=== PATIENT | female | born 1990 | race Caucasian/White ===

== ENCOUNTER 2022-10-02 13:02 | Emergency (ER) | payer BC, SELFPAY ==
[2022-10-02 14:12] VITALS: BP 118/71; PULSE 76; RESP 16; TEMP 36.3; O2SAT 99
--- NOTE | 2022-10-02 14:58 | ED.URI ---
HPI - URI/Sore Throat General Chief Complaint: Upper Respiratory Infection Stated Complaint: Flu sx Time Seen by Provider: 10/02/22 14:58 History of Present Illness HPI Narrative: 31-year-old female presented for complaint of sore throat, body aches, sinus congestion a decreased appetite over the last 2 days. Endorses family has been sick with influenza. She denies shortness of breath, wheezing, vomiting or diarrhea, fever or chills. Not taken anything for symptoms. Related Data Home Medications Medication Instructions Recorded Confirmed aripiprazole 10 mg tablet 10 mg DAILY 10/02/22 10/02/22 hydroxyzine HCl 25 mg tablet 25 mg DIRECTED 10/02/22 10/02/22 Allergies Allergy/AdvReac Type Severity Reaction Status Date / Time erythromycin base Allergy Intermediate Hives / Verified 10/04/16 10:24 Red Face Penicillins Allergy Intermediate Hives / Verified 10/04/16 10:24 Red Face prednisone Allergy Unknown Unknown Verified 10/02/22 14:29 Review of Systems Review of Systems: Per HPI Exam Narrative: GENERAL: Ill-appearing, no acute distress. EYES: conjunctivae clear ENT: Mucous membranes moist. TM pearly harrington with normal light reflex bilaterally; no tragal tenderness. Oropharynx erythematous Tonsils enlarged without exudate. No drooling, no hoarseness, no trismus, uvula midline. No tripod positioning, hot potato voice, or soft palate swelling. NECK: Supple. No lymphadenopathy CHEST: Clear to auscultation, breath sounds equal. No respiratory distress, speaks in full sentences. HEART: Regular rate and rhythm. No murmur heard. SKIN: Warm, dry, no rash. NEURO: Alert and oriented x3. Course Course Emergency Course: Patient is aware of diagnosis, understands and agrees to treatment plan. Anticipatory guidance given. Patient agrees to follow-up as directed and is aware of reasons to seek care at the emergency department. Portions of this record may have been created with voice recognition software Level of Care: Express Care Visit Vital Signs Vital signs: Vital Signs Temperature 97.3 F L 10/02/22 14:12 Pulse Rate 76 10/02/22 14:12 Respiratory Rate 16 10/02/22 14:12 Blood Pressure 118/71 10/02/22 14:12 Pulse Oximetry 99 10/02/22 14:12 Oxygen Delivery Room Air 10/02/22 14:12 Temperature 97.3 F L 10/02/22 14:12 Pulse Rate 76 10/02/22 14:12 Respiratory Rate 16 10/02/22 14:12 Blood Pressure 118/71 10/02/22 14:12 Pulse Oximetry 99 10/02/22 14:12 Oxygen Delivery Room Air 10/02/22 14:12 MDM - URI/Sore Throat MDM Narrative Medical decision making narrative: strep result reviewed with pt. Advise supportive treatments. Patient is appropriate for outpatient treatment and follow-up. Differential Diagnosis Differential diagnosis: Likely upper respiratory infection, viral infection, influenza and pharyngitis Lab Data Labs: Influenza A Screen Negative Reference Range: Negative Influenza B Screen Negative Reference Range: Negative Strep Screen Positive Group A Strep *(Reference Range: Negative)* Discharge Plan Discharge Clinical Impression: Strep pharyngitis Patient Disposition: Home, Self-Care Condition: Stable Instructions: Antibiotic Form, Strep Throat (ED) Additional Instructions: - Take the antibiotic as directed. Fever and sore throat typically resolve within one to three days. Most patients can return to work, after 12 to 24 hours of antibiotic therapy, provided you are fever free and otherwise well. -Eat and drink things that are easy to swallow, like soft foods, cool liquids, tea with honey, or popsicles . -Salt water gargles and/or may use topical anesthetic ( Chloraseptic spray) or lozenges to relieve dryness or throat pain -Alternate Tylenol and ibuprofe
== END 2022-10-02 15:08 | disposition home or self-care (01) ==
PROVIDERS: Emergency Provider Nurse Practitioner Family
DX: J02.0 Streptococcal pharyngitis (principal)
CPT/HCPCS: 87804; 87880; 99213; G0463

== ENCOUNTER 2022-11-22 18:33 | Emergency (ER) | payer OTHER, SELFPAY ==
[2022-11-22 18:41] VITALS: BP 130/69; PULSE 83; RESP 16; TEMP 36.7; O2SAT 99
--- NOTE | 2022-11-22 19:28 | ED.EAR ---
HPI - Ear Problem General Chief complaint: Ear Stated complaint: EAR INFECTION Time Seen by Provider: 11/22/22 19:28 Source: patient Mode of arrival: ambulatory Limitations: no limitations History of Present Illness HPI Narrative: 31-year-old female presents with complaint of right ear pain that started last night at 9:00 p.m.. Also reports nasal congestion. Afebrile. No other complaints today. All systems reviewed and negative except as noted above. Related Data Home Medications Medication Instructions Recorded Confirmed aripiprazole 10 mg tablet 10 mg DAILY 10/02/22 10/02/22 hydroxyzine HCl 25 mg tablet 25 mg DIRECTED 10/02/22 10/02/22 Iud 11/22/22 Skyrizi 11/22/22 Allergies Allergy/AdvReac Type Severity Reaction Status Date / Time erythromycin base Allergy Intermediate Hives / Verified 11/22/22 18:47 Red Face Penicillins Allergy Intermediate Hives / Verified 11/22/22 18:47 Red Face prednisone Allergy Unknown Unknown Verified 11/22/22 18:47 Review of Systems Review of Systems: CONSTITUTIONAL: Denies fever, chills, or sweats. EYES: Denies visual changes, redness, or discharge. ENT: Reports rhinorrhea, congestion, left ear pain. Denies sore throat, CARDIOVASCULAR: Denies chest pain, palpitations, or edema. RESPIRATORY: Denies cough or dyspnea. GASTROINTESTINAL: Denies abdominal pain, nausea, vomiting, or diarrhea. GENITOURINARY: Denies dysuria or hematuria. SKIN: Denies rash or itching. MUSCULOSKELETAL: Denies back pain, joint pain, or myalgia. NEUROLOGIC: Denies headache, numbness, or weakness. PSYCHIATRIC: Denies anxiety or depression. All other systems reviewed are negative, except as documented in HPI. PMFSH Comments At time of signature, agree with nursing past medical, surgical, social and family history. There is no relevant family history pertinent to the presenting complaint. Exam Narrative: GENERAL: This is a well-nourished, well-developed patient, in no apparent distress. HEAD: normocephalic, atraumatic. EYES: PERRL. Sclera clear/white. Vision is grossly intact. EARS: External ears normal, auditory canals clear and without drainage, left TM is erythematous, bulging. No perforation. NOSE: External nose normal with Clear nasal drainage. THROAT: Mucous membranes moist, posterior pharynx clear. NECK: Neck supple, non-tender without lymphadenopathy, masses or thyromegaly. CARDIOVASCULAR: Regular rate and rhythm without murmurs, gallops, or rubs. RESPIRATORY: Clear to auscultation. Breath sounds equal bilaterally. No wheezes, rales, or rhonchi. SKIN: warm, Dry, intact , good texture and turgor. Patient currently has severe psoriasis rash. Just got her first infusion of skyrizzi. NEURO: awake, alert, and oriented to person, place and time. There were no obvious focal neurologic abnormalities. EXTREMITIES: No joint tenderness, effusion, or edema noted. Course Course Level of Care: Express Care Visit Vital Signs Vital signs: Vital Signs Temperature 36.7 C 11/22/22 18:41 Pulse Rate 83 11/22/22 18:41 Respiratory Rate 16 11/22/22 18:41 Blood Pressure 130/69 11/22/22 18:41 Pulse Oximetry 99 11/22/22 18:41 Oxygen Delivery Room Air 11/22/22 18:41 Temperature 36.7 C 11/22/22 18:41 Pulse Rate 83 11/22/22 18:41 Respiratory Rate 16 11/22/22 18:41 Blood Pressure 130/69 11/22/22 18:41 Pulse Oximetry 99 11/22/22 18:41 Oxygen Delivery Room Air 11/22/22 18:41 reviewed Medical Decision Making MDM Narrative Medical decision making narrative: Patient is aware of diagnosis, understands and agrees to treatment plan. Anticipatory guidance given. Patient agrees to follow-up as directed and is aware of reasons to seek care at the emergency department. Portions of this record may have been created with voice recognition software Vital Signs Vital Signs: Vital Signs Temperature 36.7 C 11/22/22 18:41 Pulse Rate 83 02/1
== END 2022-11-22 19:36 | disposition home or self-care (01) ==
PROVIDERS: Emergency Provider Nurse Practitioner Family
DX: H66.92 Otitis media, unspecified, left ear (principal); J01.90 Acute sinusitis, unspecified; L40.9 Psoriasis, unspecified; F41.9 Anxiety disorder, unspecified
CPT/HCPCS: 99213; G0463

== ENCOUNTER 2022-12-10 17:33 | Emergency (ER) | payer OTHER, SELFPAY ==
--- NOTE | ~2022-12-10 | XR_ITS ---
EXAM: XR foot RT min 3V DATE: 12/10/2022 17:54 HISTORY: FALL 2 DAYS AGO, ABRASION TO DORSAL SIDE OF FOOT . COMPARISON: None available. FINDINGS: Normal mineralization. No fracture or dislocation. No lytic or blastic lesion. Achilles an d plantar enthesopathy. Mild scattered degenerative changes. No erosion or periosteal change. Soft ti ssues within normal limits. IMPRESSION: No acute osseous finding in the right foot. Reviewed, dictated and finalized at location [facility]
[2022-12-10 17:42] VITALS: BP 128/64; PULSE 98; RESP 18; TEMP 36.6; O2SAT 100
--- NOTE | 2022-12-10 17:42 | ED.LOWEXIN ---
HPI - Extremity Injury (Lower) General Chief Complaint: Extremity Injury, Lower Stated Complaint: Right Foot Pain Time Seen by Provider: 12/10/22 17:42 Source: patient, RN notes reviewed and old records reviewed Mode of arrival: ambulatory Limitations: no limitations History of Present Illness HPI Narrative: 32-year-old female presents to the [facility] with complaints of right dorsal foot pain and abrasion. States that she fell on some bleachers Saturday, 2 days ago. Pain with walking. No swelling or bruising noted. Onset (ago): day(s) (2) Injury: Right: foot Related Data Home Medications Medication Instructions Recorded Confirmed hydroxyzine HCl 25 mg tablet 25 mg DIRECTED 10/02/22 10/02/22 Iud 11/22/22 Skyrizi 11/22/22 Allergies Allergy/AdvReac Type Severity Reaction Status Date / Time erythromycin base Allergy Intermediate Hives / Verified 12/10/22 17:43 Red Face Penicillins Allergy Intermediate Hives / Verified 12/10/22 17:43 Red Face prednisone Allergy Unknown Unknown Verified 12/10/22 17:43 Review of Systems Review of Systems: All systems reviewed & are unremarkable except as noted in HPI and below Constitutional: Constitutional: Reports no additional constitutional complaints Eyes: Eyes: Reports no additional eye complaints ENT: Reports system reviewed and no additional complaints, except as documented Cardiovascular: Cardiovascular: Reports no additional cardiovascular complaints, Denies chest pain and Denies dyspnea Respiratory: Respiratory: Reports no additional respiratory complaints, Denies chest congestion, Denies cough and Denies dyspnea Gastrointestinal: Gastrointestinal: Reports no additional gastrointestinal complaints, Denies abdominal pain, Denies nausea and Denies vomiting Musculoskeletal: Musculoskeletal: Reports as per HPI Integumentary/Breasts: Skin/Breast: Reports as per HPI Neurologic: Reports system reviewed and no additional complaints, except as documented Psychiatric: Psychiatric: Reports no additional psychiatric complaints Allergic/Immunologic: Allergic/Immunologic: Reports no additional allergic/immunologic complaints PMFSH Comments At the time of my signature, I reviewed and agree with the nursing past medical, surgical, social, and family history. There is no relevant family history pertinent to the patient complaint. Exam Const: General: cooperative, healthy appearing, comfortable, no acute distress, well developed, alert and well nourished Nutritional Appearance: well nourished Orientation/consciousness: patient oriented x3 Limitations: no limitations HENMT: Head: normal to inspection Ears: hearing grossly normal bilaterally and external ears normal Face/Nose/Sinus: Normal external nose present, Normal nares present, Normal nasal mucous membranes and turbinates present and normal facial exam Face and sinus: normal facial exam Mouth: Yes Normal oral and palatal mucosa present, Yes lip normal and Yes moist mucous membranes Eyes: General: appearance normal, both eyes and all related structures Alignment and Position: alignment normal Periorbital: periorbital findings normal Conjunctivae: conjunctivae normal Pupils: Equal, round and reactive pupils present EOM: EOMs intact bilaterally Neck: Neck: normal visual inspection, full ROM, no lymphadenopathy and no meningeal signs Chest: Chest palpation & inspection: normal inspection of the chest Resp: Effort & Inspection: normal respiratory effort and able to speak in complete sentences Cardio: Rate: regular rate Rhythm: regular rhythm Back/Spine/Pelvis: Cervical Spine: cervical ROM normal Thoracic/Lumbar Spine: No thoracic spinal tenderness Skin: General skin exam: normal color and no rashes or lesions noted Lesions: no lesions Rashes: no rashes Wounds: no wounds Neuro: General: patient oriented x3, gait normal, tone normal, moves all extremities and no meningeal signs Cranial nerves: Ye
[2022-12-10 17:45] VITALS: BP 128/64; PULSE 98; RESP 18; TEMP 36.6; O2SAT 100
--- NOTE | 2022-12-10 17:49 | PC.NURSE ---
in xray 175
[2022-12-10] MEDS: TETANUS,DIPHTHERIA,AC PERTUSSIS ADULT (0.5 ML) BOOSTRIX IM (18:14)
== END 2022-12-10 18:28 | disposition home or self-care (01) ==
PROVIDERS: Emergency Provider Nurse Practitioner
DX: S90.31XA Contusion of right foot, initial encounter (principal); S93.601A Unspecified sprain of right foot, initial encounter; Z23 Encounter for immunization; W19.XXXA Unspecified fall, initial encounter
CPT/HCPCS: 73630; 90471; 90715; 99213; G0463

== ENCOUNTER 2025-05-23 13:57 | Emergency (ER) | payer OTHER, SELFPAY ==
--- NOTE | 2025-05-23 14:05 | ED_ITS ---
HPI - General Adult General Chief complaint: Upper Respiratory Infection Stated complaint: Sore Throat Time Seen by Provider: 05/23/25 14:05 Source: patient Mode of arrival: ambulatory Limitations: no limitations History of Present Illness HPI narrative: 34-year-old female patient presents to the [facility] with complaints of sore throat, body aches, chills, and fatigue and overall just not feeling well. Patient states symptoms started Saturday. Patient states she has taken some ibuprofen and 1 Zyrtec for her symptoms. Patient states that she did take go home covid test which was negative. Related Data Home Medications ?Medication ?Instructions ?Recorded ?Confirmed ?Last Taken ?Type levonorgestrel (Mirena) 1 device intrauterine ONCE 05/23/25 Unknown History Allergies Allergy/AdvReac Type Severity Reaction Status Date / Time erythromycin base Allergy Intermediate Hives / Verified 05/23/25 14:15 Red Face Penicillins Allergy Intermediate Hives / Verified 05/23/25 14:15 Red Face prednisone Allergy Unknown Unknown Verified 05/23/25 14:15 Review of Systems Review of Systems: CONSTITUTIONAL: Denies fever, positive body aches am chills, denies sweats. EYES: Denies visual changes, redness, or discharge. ENT: Denies rhinorrhea, congestion, positive sore throat, positive left otalgia. CARDIOVASCULAR: Denies chest pain, palpitations, or edema. RESPIRATORY: Denies cough or dyspnea. GASTROINTESTINAL: Denies abdominal pain, nausea, vomiting, or diarrhea. GENITOURINARY: Denies dysuria or hematuria. SKIN: Denies rash or itching. MUSCULOSKELETAL: Denies back pain, joint pain, or myalgia. NEUROLOGIC: Denies headache, numbness, or weakness. PSYCHIATRIC: Denies anxiety or depression. [facility] Past Medical History Medical History (Updated 05/23/25 @ 14:21 by CHANTEL Chacon) Heart murmur Comments At the time of my signature I agree with nursing past medical history, surgical, social, and family history. There is no relevant family history pertinent to the presenting complaint. Exam Narrative: GENERAL: Well-appearing, well-nourished, and in no acute distress. HEAD: Normocephalic, atraumatic. EYES: PERRLA and EOMI. ENT: Nares clear, no rhinorrhea or epistaxis. Mucous membranes moist. Posterior pharynx with some white spots noted to the left tonsil 1+ tonsillar enlargement slight erythema present. Unable to assess bilateral TMs due to cerumen impac tion. NECK: Supple. No lymphadenopathy CHEST: Clear to auscultation. No respiratory distress. HEART: Regular rate and rhythm. No murmur heard. Normal peripheral pulses. ABDOMEN: Soft, nontender, nondistended, normal active bowel sounds. EXTREMITIES: Normal range of motion. No edema. SKIN: Warm, dry, no rash. NEURO: No focal deficits. Alert and oriented x3. Course Course Level of Care: Express Care Visit Vital Signs Vital signs: Vital Signs Temperature 36.6 C 05/23/25 14:08 Pulse Rate 87 05/23/25 14:08 Respiratory Rate 16 05/23/25 14:08 Blood Pressure 131/82 05/23/25 14:08 Pulse Oximetry 100 05/23/25 14:08 Oxygen Delivery Room Air 05/23/25 14:08 Temperature 36.6 C 05/23/25 14:08 Pulse Rate 87 05/23/25 14:08 Respiratory Rate 16 05/23/25 14:08 Blood Pressure 131/82 05/23/25 14:08 Pulse Oximetry 100 05/23/25 14:08 Oxygen Delivery Room Air 05/23/25 14:08 Vital signs reviewed Medical Decision Making MDM Narrative Medical decision making narrative: Notified patient that she has tested negative for her point of care strep test today. We will send it to lab for culture if the culture comes back positive we will call her in an antibiotic at that time. Discussed with patient continue to take [id number] medications for her symptoms as needed. Differential Diagnosis Differential Diagnosis: Differential diagnosis: Allergic rhinitis, chronic sinusitis, tonsillitis, acute sinusitis, infectious mononucleosis, seasonal influenza, pertussis, diphtheria, meningococcal disease, viral syndrome, viral bronchitis, RSV, COVID- 19 Vital Signs Vital Signs: Vital Signs Temperature 36.6 C 05/23/25 14:08 Pulse Rate 87 05/23/25 14:08 Respiratory Rate 16 05/23/25 14:08 Blood Pressure 131/82 05/23/25 14:08 Pulse Oximetry 100 05/23/25 14:08 Oxygen Delivery Room Air 05/23/25 14:08 Temperature 36.6 C 05/23/25 14:08 Pulse Rate 87 05/23/25 14:08 Respiratory Rate 16 05/23/25 14:08 Blood Pressure 131/82 05/23/25 14:08 Pulse Oximetry 100 05/23/25 14:08 Oxygen Delivery Room Air 05/23/25 14:08 Lab Data Labs: Lab Results 05/23/25 Range/Units 14:13 POC Grp A Strep Screen Negative (Negative) Critical Care Time Critical Care Time Critical Care Time: No Discharge Plan Discharge Clinical Impression: Pharyngitis, Viral URI Patient Disposition: Home Condition: Stable Instructions: Antibiotic Form, Viral Syndrome (ED) Additional Instructions: Viral illness may last between 7-12days; antibiotic is NOT recommended at this time. Recommend antihistamine such as Benadryl at night time and Claritin/Zyrtec/Salima during the day Also, recommend symptomatic treatment includes: rest, fluids, and increase humidity of the air at home. Recommend Acetaminophen or nonsteroidal anti-inflammatory agents (NSAIDs) as directed in the bottle to reduce fever and/pain/headache. Avoid smoking/second-hand smoke. Limit visits to areas with large crowds. Please schedule a follow-up visit with your personal physician for further evaluation and treatment within 3-5days. Including recheck and discussion of your blood pressure. If your symptoms persist, change or worsen significantly before you can contact your personal physician then please, without delay, go to the emergency department for further evaluation. 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
[2025-05-23 14:08] VITALS: BP 131/82; PULSE 87; RESP 16; TEMP 36.6; O2SAT 100
[2025-05-23 14:15] LABS: EDSTREPNEGPOS1 Negative (Negative)
== END 2025-05-23 14:27 | disposition home or self-care (01) ==
PROVIDERS: Emergency Provider Nurse Practitioner Family
DX: J02.9 Acute pharyngitis, unspecified (principal); J06.9 Acute upper respiratory infection, unspecified; R01.1 Cardiac murmur, unspecified
CPT/HCPCS: 87081; 87880; 99213; G0463